=== PATIENT | male | born 1965 | race African-American/Black ===

== ENCOUNTER 2018-10-04 12:02 | Inpatient (IN) | payer OTHER ==
[2018-10-04 14:01] VITALS: BMI 23.7
--- NOTE | 2018-10-04 15:24 | HP ---
COWS - Scale Resting Pulse: 0= [place] 80 or Below Sweatin= Chills/Flushing Restless Observation: 1= Difficult to Sit Still Pupil Size: 0= Normal to Room Light Bone or Joint Aches: 1= Mild Discomfort Runny Nose/ Eye Tearin= Nasal Congestion GI Upset > 30mins: 2= Nausea/Diarrhea Tremor Observation: 1= Tremor [place], Not Seen Yawning Observation: 1= 1-2x During Session Anxiety or Irritability: 2=Irritable/Anxious Goose Flesh Skin: 0=Smooth Skin COWS Score: 10 CIWA Score - Admission Criteria [facility] Guidelines: Admission for Medically Managed Detox: Requires at least one of the followin. CIWA greater than 12 2. Seizures within the past 24 hours 3. Delirium tremens within the past 24 hours 4. Hallucinations within the past 24 hours 5. Acute intervention needed for co occurring medical disorder 6. Acute intervention needed for co occurring psychiatric disorder 7. Severe withdrawal that cannot be handled at a lower level of care (continued vomiting, continued diarrhea, abnormal vital signs) requiring intravenous medication and/or fluids 8. Admission [facility] Chief Complaint: seeking help for heroin use Allergies/Adverse Reactions: Allergies Allergy/AdvReac Type Severity Reaction Status Date / Time No Known Allergies Allergy Verified 10/04/18 13:44 History of Present Illness: 52 y/o/m here seeking help for heroin use. He states he started using heroin a week ago. His father on Mother's day this year and he has been distressed since then. Last week when he was with a friend who uses heroin he tried it as well. He states his use has progressed over the last week. He was using 1 bag initially and by yesterday he was using 7 bags. He uses the heroin by inhaling, he denies any IV use. He smokes Marijuana about once a week, he has been using Marijuana for the last month. He has been drug free for the last 9 years until a month ago when he started using Marijuana again. He smokes a pack a day of cigarettes. He denies any alcohol use. He denies any cocaine, fentanyl, or other opiate use currently. He denies being in a methadone program. He has used cocaine in the past in his 20s but not since. PMHx of depression and anxiety for which he takes Prozac and Abilify daily. He had a surgery to have a polyp removed from his vocal cords in 2011 and had a total knee replacement on 05/19/18. He uses a cane to ambulate because he feels that his knee is unstable sometimes. He is living on his own and is unemployed on disability. - Ebola screening Have you traveled outside of the country in the last 21 days: No Have you had contact with anyone from an Ebola affected area: No - Review of Systems Constitutional: Loss of Appetite EENT: reports: No Symptoms Reported Respiratory: reports: No Symptoms reported Cardiac: reports: No Symptoms Reported GI: reports: No Symptoms Reported Musculoskeletal: reports: Back Pain, Joint Pain (knees) Integumentary: reports: No Symptoms Reported Neuro: reports: No Symptoms reported Endocrine: reports: Excessive Sweating Hematology: reports: No Symptoms Reported Psychiatric: reports: No Sypmtoms Reported Other Systems: Reviewed and Negative Patient History - Patient Medical History Hx Anemia: No Hx Asthma: No Hx Chronic Obstructive Pulmonary Disease (COPD): No Hx Cancer: No Hx Cardiac Disorders: No Hx Congestive Heart Failure: No Hx Hypertension: No Hx Hypercholesterolemia: No Hx Pacemaker: No HX Cerebrovascular Accident: No Hx Seizures: No Hx Dementia: No Hx Diabetes: No Hx Gastrointestinal Disorders: No Hx Liver Disease: No Hx Genitourinary Disorders: No Hx Sexually Transmitted Disorders: No Hx Renal Disease (ESRD): No Hx Thyroid Disease: No Hx Human Immunodeficiency Virus (HIV): No (negative) Hx Hepatitis C: No Hx Depression: Yes (on meds) Hx Suicide Attempt: No Hx Bipolar Disorder: No Hx Schizophrenia: No Other Medical History: no suicidal or homicidal ideations - Patient Surgical History Past Surgical History: Yes Hx Neurologic Surgery: No Hx Cataract Extraction: No Hx Cardiac Surgery: No Hx Lung Surgery: No Hx Abdominal Surgery: Yes (hernia repair 1996) Hx Appendectomy: No Hx Cholecystectomy: No Hx Genitourinary Surgery: No Hx Orthopedic Surgery: Yes (TKA 06/01) Other Surgical History: vocal cord polyp removal 2011 Anesthesia Reaction: No - PPD History Previous Implant?: Yes Documented Results: Negative w/o proof Implanted On Prior R Admission?: No Date: 06/14/17 PPD to be Administered?: Yes - Smoking Cessation Smoking history: Current every day smoker Have you smoked in the past 12 months: Yes Aproximately how many cigarettes per day: 20 Hx Chewing Tobacco Use: No Initiated information on smoking cessation: Yes 'Breaking Loose' booklet given: 10/04/18 - Substance & Tx. History Hx Alcohol Use: Yes Substance Use Type: Heroin - Substances abused Heroin Substance route: Inhalation Frequency: Daily Amount used: 7 bags/day Age of first use: 30 Date of last use: 10/04/18 Family Disease History - Family Disease History Family Disease History: Other: Father ( 2019, liver cancer), Mother (HTN ) Admission Physical Exam [facility] - Vital Signs Vital Signs: Vital Signs - 24 hr 10/04/18 13:42 Temperature 97.1 F L Pulse Rate 79 Respiratory 16 Rate Blood Pressure 123/80 - Physical General Appearance: Yes: No Apparent Distress HEENTM: Yes: EOMI, Normocephalic Respiratory: Yes: Lungs Clear, Normal Breath Sounds, No Accessory Muscle Use Neck: Yes: Supple Cardiology: Yes: Regular Rhythm, Regular Rate, S1, S2 Abdominal: Yes: Normal Bowel Sounds, Non Tender, Soft, Hernia (reducible hernia palpated in the inguinal region. no tenderness to palpation.). No: Guarding, Rebound Musculoskeletal: Yes: Gait Steady (ambulates with a cane) Extremities: Yes: Normal Capillary Refill. No: Tremors, Swelling Neurological: Yes: Fully Oriented, Alert, Motor Strength 5/5 Integumentary: Yes: Dry - Diagnostic (1) Opioid use disorder Current Visit: Yes Status: Acute (2) Cannabis abuse Current Visit: Yes Status: Acute Cleared for Admission [facility] - Detox or Rehab [facility] Level of Care: Medically Managed Detox Regimen/Protocol: Methadone Breathalyzer - Breathalyzer Breathalyzer: 0 Urine Drug Screen - Test Device Lot number: [id number] Expiration date: 07/13/20 - Control Is test valid?: Yes - Results Drug screen NEGATIVE: No Urine drug screen results: THC-Marijuana, LUIS E-Cocaine, FEN-Fentanyl, OXY- Oxycodone, MTD-Methadone Inpatient Rehab Admission - Rehab Decision to Admit Inpatient rehab admission?: No
[2018-10-04] MEDS ORDERED: hydrOXYzine HCL 25 MG TABLET (FP) PO PRN (16:02)
[2018-10-04] MEDS ORDERED: MENTHOL/PHENOL 1 EACH UD MM PRN (16:02)
[2018-10-04] MEDS ORDERED: MAG HYDROX/AL HYDROX/SIMETH 30 ML UNIT-DOSE CUP PO PRN (16:02)
[2018-10-04] MEDS ORDERED: METHOCARBAMOL 500 MG TABLET PO PRN (16:02)
[2018-10-04] MEDS ORDERED: IBUPROFEN 400 MG TABLET (FP) PO PRN (16:02)
[2018-10-04] MEDS ORDERED: MAGNESIUM CITRATE 300 ML BOTTLE PO PRN (16:02)
[2018-10-04] MEDS ORDERED: BISMUTH SUBSALICYLATE 524 MG/30 ML UD PO PRN (16:02)
[2018-10-04] MEDS ORDERED: NICOTINE POLACRILEX 2 MG GUM BUC PRN (16:02)
[2018-10-04] MEDS ORDERED: MELATONIN 5 MG TABLETS PO PRN (16:02)
[2018-10-04] MEDS ORDERED: cloNIDine HCL 0.1 MG TABLET PO PRN (16:02)
[2018-10-04] MEDS ORDERED: ACETAMINOPHEN 325 MG TABLET (FP) PO PRN ×2 (16:02)
[2018-10-04] MEDS ORDERED: MAGNESIUM HYDROX 2400MG/30ML ORAL SUSPENSION 30 ML CUP PO PRN (16:02)
[2018-10-04] MEDS ORDERED: METHADONE HCL 10 MG TABLET (FOR DETOX USE ONLY) PO ONE (17:00)
--- NOTE | 2018-10-04 18:13 | PN ---
Teaching Attending Note Name of Resident: Vidal Mahoney ATTENDING PHYSICIAN STATEMENT I saw and evaluated the patient. I reviewed the resident's note and discussed the case with the resident. I agree with the resident's findings and plan as documented. SUBJECTIVE: pt here requesting opioid detox. Has past h/o opioid use, relapsed to heroin use for the last week. Says he is in acute withdrawal with nausea, diarrhea. OBJECTIVE: Vital Signs - 24 hr 10/04/18 10/04/18 13:42 17:04 Temperature 97.1 F L 97.2 F L Pulse Rate 79 73 Respiratory 16 16 Rate Blood Pressure 123/80 133/81 agitated alert and oriented ASSESSMENT AND PLAN: pt to be admitted for OUD withdrawal treatment with methadone
[2018-10-04] MEDS ORDERED: THIAMINE HCL 100 MG TABLET (FP) PO SCH (22:00)
[2018-10-05] MEDS ORDERED: METHADONE HCL 5 MG TABLET (FOR DETOX USE ONLY) PO ONE (10:00)
[2018-10-05] MEDS ORDERED: PRENATAL VITAMINS W/ FOLIC ACID TABLET (FP) PO SCH (10:00)
--- NOTE | 2018-10-05 10:31 | PN ---
[facility] Progress Note (SOAP) Subjective: alert,irritable,anxious,interrupted sleep,tremor,pain in the body and back Objective: 10/05/18 10:30 Vital Signs Temperature 98.2 F 10/05/18 09:45 Pulse Rate 66 10/05/18 09:45 Respiratory Rate 16 10/05/18 09:45 Blood Pressure 117/65 10/05/18 09:45 O2 Sat by Pulse Oximetry (%) labs pending Assessment: 10/05/18 10:30 withdrawal symptom Plan: continue detox methadone regimen
[2018-10-05 12:26] LABS: HEMATOCRIT 43.5 % (35.4-49); HEMOGLOBIN 14.4 GM/dL (11.7-16.9); MCH 28.8 pg (25.7-33.7); MEAN CELL VOLUME 87.3 fl (80-96); MEAN PLT VOLUME 8.2 fl (7.5-11.1); PLATELET COUNT 283 K/MM3 (134-434); RBC 4.98 M/mm3 (4.00-5.60)
[2018-10-05 12:29] LABS: ALBUMIN 3.6 g/dl (3.4-5.0); BILIRUBIN,TOTAL 0.2 mg/dL (0.2-1); BLOOD UREA NITROGEN 17.4 mg/dL (7-18); CALCIUM 9.3 mg/dL (8.5-10.1); POTASSIUM 4.7 mmol/L (3.5-5.1); TOT PROT 7.2 g/dl (6.4-8.2)
[2018-10-05 13:39] VITALS: BP 128/79; PULSE 78; TEMP 99.1
--- NOTE | 2018-10-05 13:43 | EKG ---
Test Reason : Blood Pressure : / mmHG Vent. Rate : 070 BPM Atrial Rate : 070 BPM P-R Int : 116 ms QRS Dur : 086 ms QT Int : 402 ms P-R-T Axes : 075 065 045 degrees QTc Int : 434 ms NORMAL SINUS RHYTHM POSSIBLE LEFT ATRIAL ENLARGEMENT BORDERLINE ECG NO PREVIOUS ECGS AVAILABLE Confirmed by Gibson Warner MD ([id number]) on 10/05/2018 1:42:38 PM Referred By: Confirmed By:Gibson Warner MD
[2018-10-06] MEDS ORDERED: METHADONE HCL 10 MG TABLET (FOR DETOX USE ONLY) PO ONE (10:00)
[2018-10-07] MEDS ORDERED: METHADONE HCL 5 MG TABLET (FOR DETOX USE ONLY) PO ONE (06:00)
== END 2018-10-05 15:55 | disposition left against medical advice (07) | DRG 894 ==
LOC: YASAS 12:02 → Y6N 16:22
PROVIDERS: ADMIT Surgery; ATTEND Surgery
PROC: HZ2ZZZZ Detoxification Services for Substance Abuse Treatment (ICD-10-PCS; principal; 2018-10-04)
DX: F11.23 Opioid dependence with withdrawal (principal); F12.10 Cannabis abuse, uncomplicated; F17.210 Nicotine dependence, cigarettes, uncomplicated
CPT/HCPCS: 36415; 80053; 85027; 86480; 86593; 93005; 93010

== ENCOUNTER 2021-10-30 14:46 | Observation (INO) | payer OTHER ==
[2021-10-30] MEDS ORDERED: FAMOTIDINE 20 MG/50 ML IVPB 20 MG/50 ML MG IVPB ONE ×2 (15:45→15:56)
[2021-10-30] MEDS ORDERED: ACETAMINOPHEN 1000 MG/100 ML BAG IVPB ONE (15:45)
[2021-10-30] MEDS ORDERED: MAG HYDROX/AL HYDROX/SIMETH -MYLANTA- ORAL SUSPENSION PO ONE (15:45)
[2021-10-30] MEDS ORDERED: MAG HYDROX/AL HYDROX/SIMETH 30 ML UNIT-DOSE CUP ONE (15:56)
[2021-10-30] MEDS ORDERED: ACETAMINOPHEN INJECTION 100 ML IVPB ONE (15:56)
[2021-10-30 16:16] LABS: BASO % 0.9 % (0-2.0); EOS % 0.1 % (0-4.5); HEMATOCRIT 43.4 % (35.4-49); LYMPH % 13.3 % (8-40); MCHC 34.6 g/dl (32.0-35.9); MEAN CELL VOLUME 86.7 fl (80-96); MEAN PLT VOLUME 7.5 fl (7.5-11.1); MONO % 4.5 % (3.8-10.2); NEUT % 81.2 % (42.8-82.8); PLATELET COUNT 362 10^3/uL (134-434); RBC 5.01 M/mm3 (4.00-5.60); RDW 13.7 % (11.9-15.9); WHITE BLOOD COUNT 9.4 K/mm3 (4.0-10.0)
[2021-10-30 16:23] LABS: INR 1.34 (0.83-1.09); PROTHROMBIN TIME (PATIENT) 15.4 SEC (9.7-13.0)
[2021-10-30 16:26] LABS: ACTIVATED PTT 28.2 SECONDS (25.2-36.5)
[2021-10-30] MEDS ORDERED: AZITHROMYCIN IVPB 500 MG in DEXTROSE 5%-WATER - 250 ML IVPB ONE (16:26)
[2021-10-30] MEDS ORDERED: CEFTRIAXONE 1 GM in DEXTROSE 5%-WATER - 100 ML IVPB ONE (16:26)
[2021-10-30] MEDS ORDERED: CEFTRIAXONE 1 GM/50 ML BAG ONE (16:38)
[2021-10-30 16:40] LABS: CHLORIDE 122 mmol/L (98-107); SODIUM 149 mmol/L (136-145)
[2021-10-30 16:43] LABS: ALBUMIN 1.7 g/dl (3.4-5.0); BLOOD UREA NITROGEN 9.1 mg/dL (7-18); CO2 18 mmol/L (21-32); GLUCOSE,RANDOM 59 mg/dL (74-106); LIPASE 52 U/L (73-393)
[2021-10-30 16:46] LABS: CREATININE 0.2 mg/dL (0.55-1.3); SGOT/AST 17 U/L (15-37); SGPT/ALT 11 U/L (13-61)
[2021-10-30 16:48] LABS: BILIRUBIN,TOTAL 0.3 mg/dL (0.2-1)
[2021-10-30 16:49] LABS: ALK PHOS 49 U/L (45-117)
[2021-10-30 16:50] LABS: ANION GAP 9 MMOL/L (8-16); CALCIUM 5.2 mg/dL (8.5-10.1)
[2021-10-30] MEDS ORDERED: AZITHROMYCIN IVPB 500 MG/250 ML BAG IVPB ONE (17:07)
[2021-10-30 19:01] LABS: CREATININE 0.9 mg/dL (0.55-1.3)
[2021-10-30 19:03] LABS: BILIRUBIN,TOTAL 0.4 mg/dL (0.2-1)
[2021-10-30 19:06] LABS: ALBUMIN 3.4 g/dl (3.4-5.0); CALCIUM 9.8 mg/dL (8.5-10.1); TOT PROT 8.1 g/dl (6.4-8.2)
[2021-10-30] MEDS ORDERED: methaDONE HCL 10 MG TABLET PO ONE (20:06)
[2021-10-30] MEDS ORDERED: ONDANSETRON 4 MG TABLET PO ONE (20:07)
[2021-10-30] MEDS ORDERED: methaDONE HCL 10 MG TABLET ONE (21:03)
[2021-10-30] MEDS ORDERED: ONDANSETRON *ODT* 4 MG TABLET ONE (21:03)
[2021-10-31 06:12] VITALS: BMI 20.5
[2021-10-31] MEDS ORDERED: LACTATED RINGERS SOLUTION 1,000 ML/1,000 ML INFUS.BAG IV SCH (07:00)
[2021-10-31 09:02] VITALS: RESP 18
[2021-10-31] MEDS: PANTOPRAZOLE SODIUM 40 MG VIAL IVPUSH SCH ×2 (09:03→09:35)
[2021-10-31] MEDS: ENOXAPARIN NA (PORCINE) 40 MG/0.4 ML DISP.SYRIN SQ SCH (09:03)
[2021-10-31 09:19] LABS: HEMATOCRIT 42.7 % (35.4-49); MCH 30.1 pg (25.7-33.7); MEAN CELL VOLUME 86.1 fl (80-96); MEAN PLT VOLUME 7.4 fl (7.5-11.1); PLATELET COUNT 396 10^3/uL (134-434); RBC 4.97 M/mm3 (4.00-5.60); RDW 13.4 % (11.9-15.9)
[2021-10-31] MEDS: ONDANSETRON 4 MG/2 ML VIAL IVPB PRN (09:35)
[2021-10-31 09:45] LABS: ALBUMIN 3.3 g/dl (3.4-5.0); BLOOD UREA NITROGEN 17.4 mg/dL (7-18); CALCIUM 9.5 mg/dL (8.5-10.1); MAGNESIUM 2.2 mg/dL (1.8-2.4)
[2021-10-31 09:48] LABS: PHOSPHOROUS 3.8 mg/dL (2.5-4.9)
[2021-10-31 09:50] LABS: BILIRUBIN,TOTAL 0.5 mg/dL (0.2-1); TOT PROT 7.6 g/dl (6.4-8.2)
[2021-10-31] MEDS ORDERED: LORazepam 2 MG/ML SDV VIAL IVPUSH PRN (09:50)
[2021-10-31] MEDS: NICOTINE 21 MG/24 HOURS TOPICAL PATCH TD SCH (09:59)
[2021-10-31] MEDS ORDERED: methaDONE HCL 10 MG TABLET PO ONE (13:30)
[2021-10-31] MEDS: cloNIDine HCL 0.1 MG TABLET PO PRN ×2 (14:33→21:28)
[2021-10-31] MEDS ORDERED: cefTRIAXone SODIUM 1 GM VIAL ONE (18:25)
[2021-10-31] MEDS: CEFTRIAXONE 1 GM in DEXTROSE 5%-WATER - 50 ML IVPB SCH (18:26)
[2021-11-01] MEDS: ONDANSETRON 4 MG/2 ML VIAL IVPB PRN (08:25)
[2021-11-01] MEDS: PANTOPRAZOLE SODIUM 40 MG VIAL IVPUSH SCH (09:27)
[2021-11-01] MEDS: NICOTINE 21 MG/24 HOURS TOPICAL PATCH TD SCH (09:27)
[2021-11-01] MEDS: ENOXAPARIN NA (PORCINE) 40 MG/0.4 ML DISP.SYRIN SQ SCH (09:27)
[2021-11-01] MEDS: CEFTRIAXONE 1 GM in DEXTROSE 5%-WATER - 50 ML IVPB SCH (09:27)
[2021-11-01 10:49] LABS: BASO % 0.9 % (0-2.0); EOS % 1.5 % (0-4.5); HEMATOCRIT 40.4 % (35.4-49); HEMOGLOBIN 13.2 GM/dL (11.7-16.9); LYMPH % 24.6 % (8-40); MCH 28.8 pg (25.7-33.7); MCHC 32.6 g/dl (32.0-35.9); MEAN CELL VOLUME 88.3 fl (80-96); MEAN PLT VOLUME 7.4 fl (7.5-11.1); MONO % 8.6 % (3.8-10.2); NEUT % 64.4 % (42.8-82.8); PLATELET COUNT 344 10^3/uL (134-434); RBC 4.58 M/mm3 (4.00-5.60); RDW 13.6 % (11.9-15.9); WHITE BLOOD COUNT 7.5 K/mm3 (4.0-10.0)
[2021-11-01 11:11] LABS: ALBUMIN 2.8 g/dl (3.4-5.0); CALCIUM 8.6 mg/dL (8.5-10.1); MAGNESIUM 1.9 mg/dL (1.8-2.4)
[2021-11-01] MEDS ORDERED: POTASSIUM CHLORIDE TABS 20 MEQ TABLET.ER (FP) PO ONE (11:12)
[2021-11-01 11:14] LABS: CREATININE 0.9 mg/dL (0.55-1.3)
[2021-11-01 11:16] LABS: BILIRUBIN,TOTAL 0.3 mg/dL (0.2-1); TOT PROT 6.5 g/dl (6.4-8.2)
[2021-11-02] MEDS ORDERED: ACETAMINOPHEN 325 MG TABLET (FP) PO ONE (06:56)
[2021-11-02] MEDS: ENOXAPARIN NA (PORCINE) 40 MG/0.4 ML DISP.SYRIN SQ SCH (09:58)
[2021-11-02] MEDS: PANTOPRAZOLE SODIUM 40 MG VIAL IVPUSH SCH (09:59)
[2021-11-02] MEDS: NICOTINE 21 MG/24 HOURS TOPICAL PATCH TD SCH (09:59)
[2021-11-02] MEDS ORDERED: methaDONE HCL 10 MG TABLET PO ONE (10:00)
[2021-11-02 11:51] VITALS: BP 156/93; PULSE 78; TEMP 97.9
[2021-11-02 11:52] LABS: ALBUMIN 2.9 g/dl (3.4-5.0); CALCIUM 8.9 mg/dL (8.5-10.1)
[2021-11-02 11:53] LABS: BLOOD UREA NITROGEN 12.9 mg/dL (7-18)
[2021-11-02 11:55] LABS: CREATININE 0.9 mg/dL (0.55-1.3)
[2021-11-02 11:56] LABS: TOT PROT 6.6 g/dl (6.4-8.2)
[2021-11-02 11:57] LABS: BILIRUBIN,TOTAL 0.4 mg/dL (0.2-1)
[2021-11-04] MEDS ORDERED: methaDONE HCL 10 MG TABLET PO ONE (10:00)
== END 2021-11-02 10:50 | disposition home or self-care (01) ==
LOC: JER 14:46 → JERBED 19:35 → J6S 10-31 05:37
PROVIDERS: ADMIT Internal Medicine; ATTEND Nurse Practitioner Family
PROC: 3E033NZ Introduction of Analgesics, Hypnotics, Sedatives into Peripheral Vein, Percutaneous Approach (ICD-10-PCS; principal; 2021-10-30)
PROC: 3E03329 Introduction of Other Anti-infective into Peripheral Vein, Percutaneous Approach (ICD-10-PCS; 2021-10-30)
PROC: 3E033GC Introduction of Other Therapeutic Substance into Peripheral Vein, Percutaneous Approach (ICD-10-PCS; 2021-10-30)
PROC: 3E03329 Introduction of Other Anti-infective into Peripheral Vein, Percutaneous Approach (ICD-10-PCS; 2021-10-30)
PROC: 3E033NZ Introduction of Analgesics, Hypnotics, Sedatives into Peripheral Vein, Percutaneous Approach (ICD-10-PCS; 2021-10-30)
DX: F19.10 Other psychoactive substance abuse, uncomplicated (principal); R07.9 Chest pain, unspecified; R19.7 Diarrhea, unspecified; R11.2 Nausea with vomiting, unspecified; J18.9 Pneumonia, unspecified organism; R91.1 Solitary pulmonary nodule; Z29.8 Encounter for other specified prophylactic measures; F17.210 Nicotine dependence, cigarettes, uncomplicated; G89.29 Other chronic pain; Z96.651 Presence of right artificial knee joint; R63.0 Anorexia
CPT/HCPCS: 36415; 71045-TC-FY; 71046-TC-FY; 71250-TC; 74177-TC; 74240-TC-FY; 80048; 80053; 82962; 83690; 83735; 84100; 84484; 85025; 85027; 85610; 85730; 86704; 86708; 86803; 87045; 87046; 87205; 87209; 87324; 87340; 87449; 87517; 93005; 93010; 96361; 96365; 96366; 96372; 96375; 99285-25; C9803-CS; G0378; Q9967; U0003; U0005